=== PATIENT | male | born 1975 | race Hispanic/Latino ===

== ENCOUNTER 2017-12-03 22:58 | Emergency (ER) | payer SELFPAY ==
[2017-12-04 01:06] LABS: Protime INR 1.04
[2017-12-04 01:11] LABS: Barbiturates NEGATIVE; Benzodiazepines NEGATIVE; Cocaine NEGATIVE; METHAMPHETAM NEGATIVE (NEGATIVE); Opiates NEGATIVE; Phencyclidine NEGATIVE; THC Cannibis NEGATIVE
[2017-12-04 01:11] LABS: Absolute Monocytes 0.7 K/uL (0.1-1.3); Absolute Neutrophil 6.2 K/uL (1.8-8.0); Basophils % 1.9 % (0-1.3); Eosinophils % 5.2 % (0-4.4); Lymphocytes % 11.9 % (15.3-44.8); MCH 29.6 pg (27.0-35.0); MCV 86.4 fL (80-100); MPV 9.2 fL (7.6-11.3); Monocytes % 7.9 % (3.3-12.3); RBC Red Blood Cell Count 5.09 M/uL (4.33-5.43)
[2017-12-04 01:15] LABS: Bicarbonate 27 mEq/L (21-31); Glucose Level 294 mg/dL (65-120); Potassium 4.1 mEq/L (3.6-5.0); Sodium Level 135 mEq/L (135-145)
--- NOTE | 2017-12-04 01:20 | EDPHYS ---
Physician Documentation [facility] Name: Hal Dennis Age: 42 yrs Sex: Male : 1975 Arrival Date: 12/03/2017 Time: 22:59 Bed 23 Private MD: ED Physician Kvng Shearer HPI: 12/04 01:11 This 42 yrs old Male presents to ER via Ambulatory with complaints of Leg jad Pain, Numbness Of Hand, Numbness of leg. 01:11 The patient presents with decreased range of motion, pain. The complaints affect the jad lateral aspect of left thigh, left hamstring and left calf. Context: The problem was sustained at an unknown site. Onset: The symptoms/episode began/occurred 5 day(s) ago. Modifying factors: The symptoms are alleviated by elevating leg, the symptoms are aggravated by movement. Associated signs and symptoms: The patient has no apparent associated signs or symptoms. Severity of symptoms: At their worst the symptoms were moderate, in the emergency department the symptoms are unchanged. Historical: - Allergies: 12/03 23:25 NKDA; bb - Home Meds: 23:25 lisinopril Oral [Active]; metformin 500 mg Oral Tb24 1 tab once daily [Active]; bb metoprolol 100 mg twice a day for High Blood Pressure [Active]; Hydralazine Oral [Active]; - PMHx: 23:25 Diabetes - NIDDM; Hypertension; bb - PSHx: 23:25 None; bb - Immunization history:: Adult Immunizations unknown. - Social history:: Smoking status: Patient/guardian denies using tobacco, Patient/guardian denies using alcohol, street drugs. - Ebola Screening: : No symptoms or risks identified at this time. - Family history:: not pertinent. ROS: 12/04 01:11 Constitutional: Negative for fever, chills, and weight loss, Eyes: Negative for injury, jad pain, redness, and discharge, ENT: Negative for injury, pain, and discharge, Neck: Negative for injury, pain, and swelling, Cardiovascular: Negative for chest pain, palpitations, and edema, Respiratory: Negative for shortness of breath, cough, wheezing, and pleuritic chest pain, Abdomen/GI: Negative for abdominal pain, nausea, vomiting, diarrhea, and constipation, Back: Negative for injury and pain, : Negative for injury, bleeding, discharge, and swelling, Skin: Negative for injury, rash, and discoloration, Psych: Negative for depression, anxiety, suicide ideation, homicidal ideation, and hallucinations, Allergy/Immunology: Negative for hives, rash, and allergies, Endocrine: Negative for neck swelling, polydipsia, polyuria, polyphagia, and marked weight changes, Hematologic/Lymphatic: Negative for swollen nodes, abnormal bleeding, and unusual bruising. MS/extremity: Positive for paresthesias, tingling, of the dorsal aspect of distal phalanx of left thumb, dorsal aspect of proximal phalanx of left thumb, dorsal aspect of distal phalanx of left index finger, dorsal aspect of middle phalanx of left index finger, dorsal aspect of proximal phalanx of left index finger, dorsal aspect of distal phalanx of left middle finger, dorsal aspect of middle phalanx of left middle finger, dorsal aspect of proximal phalanx of left middle finger, dorsal aspect of distal phalanx of left ring finger, dorsal aspect of middle phalanx of left ring finger and dorsal aspect of proximal phalanx of left ring finger. Exam: :11 Constitutional: This is a well developed, well nourished patient who is awake, alert, jad and in no acute distress. Head/Face: Normocephalic, atraumatic. Eyes: Pupils equal round and reactive to light, extra-ocular motions intact. Lids and lashes normal. Conjunctiva and sclera are non-icteric and not injected. Cornea within normal limits. Periorbital areas with no swelling, redness, or edema. ENT: Nares patent. No nasal discharge, no septal abnormalities noted. Tympanic membranes are normal and external auditory canals are clear. Oropharynx with no redness, swelling, or masses, exudates, or evidence of obstruction, uvula midline. Mucous membranes moist. Neck: Trachea midline, no thyromegaly or masses palpated, and no cervical lymphadenopathy. Supple, full range of motion without nuchal rigidity, or vertebral point tenderness. No Meningismus. Chest/axilla: Normal chest wall appearance and motion. Nontender with no deformity. No lesions are appreciated. Cardiovascular: Regular rate and rhythm with a normal S1 and S2. No gallops, murmurs, or rubs. Normal PMI, no JVD. No pulse deficits. Respiratory: Lungs have equal breath sounds bilaterally, clear to auscultation and percussion. No rales, rhonchi or wheezes noted. No increased work of breathing, no retractions or nasal flaring. Abdomen/GI: Soft, non-tender, with normal bowel sounds. No distension or tympany. No guarding or rebound. No evidence of tenderness throughout. Back: No spinal tenderness. No costovertebral tenderness. Full range of motion. Skin: Warm, dry with normal turgor. Normal color with no rashes, no lesions, and no evidence of cellulitis. Psych: Awake, alert, with orientation to person, place and time. Behavior, mood, and affect are within normal limits. 01:11 Musculoskeletal/extremity: Circulation is intact in all extremities. Pulses: the dorsal aspect of distal phalanx of left thumb, dorsal aspect of proximal phalanx of left thumb, dorsal aspect of distal phalanx of left index finger, dorsal aspect of middle phalanx of left index finger, dorsal aspect of proximal phalanx of left index finger, dorsal aspect of distal phalanx of left middle finger, dorsal aspect of middle phalanx of left middle finger, dorsal aspect of proximal phalanx of left middle finger, dorsal aspect of middle phalanx of left ring finger, dorsal aspect of proximal phalanx of left ring finger and left ring fingernail Tingling of extremity. numbness. 01:16 Back: pain, that is moderate, ROM is normal, normal spinal alignment noted, CVA jad tenderness, is absent, vertebral tenderness, is not appreciated, muscle spasm. Vital Signs: 12/03 23:25 BP 236 / 110; Pulse 71; Resp 20; Temp 99.7(O); Pulse Ox 96% on R/A; Weight 170.1 kg bb (R); Height 5 ft. 2 in. (157.48 cm) (R); Pain 10/10; 12/04 00:00 BP 199 / 105; Pulse 61; Resp 18; Pulse Ox 96% on R/A; lp1 00:30 BP 184 / 105; Pulse 62; Resp 18; Pulse Ox 97% on R/A; lp1 01:09 BP 214 / 107; Pulse 59; Resp 22; Pulse Ox 94% on R/A; jb5 01:20 BP 180 / 107; Pulse 65; Resp 18; Pulse Ox 96% on R/A; lp1 02:00 BP 169 / 99; Pulse 63; Resp 14; Pulse Ox 96% on R/A; lp1 02:30 BP 156 / 77; Pulse 65; Resp 16; Pulse Ox 97% on R/A; lp1 03:00 BP 164 / 82; Pulse 66; Resp 16; Pulse Ox 95% on R/A; lp1 12/03 23:25 Body Mass Index 68.59 (170.10 kg, 157.48 cm) bb MDM: 12/03 23:52 Patient medically screened. [facility] 12/04 01:16 Data reviewed: vital signs, nurses notes, lab test result(s), EKG, radiologic studies, jad plain films. 12/04 00:28 Order name: Basic Metabolic Panel; Complete Time: 02:16 [facility] 12/04 00:28 Order name: BNP; Complete Time: 02:16 [facility] 12/04 00:28 Order name: CBC with Diff; Complete Time: 02:16 [facility] 12/04 00:28 Order name: Ckmb; Complete Time: 02:16 [facility] 12/04 00:28 Order name: CPK; Complete Time: 02:16 [facility] 12/04 00:28 Order name: LFT's; Complete Time: 02:16 [facility] 12/04 00:28 Order name: Magnesium; Complete Time: 02:16 [facility] 12/04 00:28 Order name: PT-INR; Complete Time: 01:11 [facility] 12/04 00:28 Order name: Ptt, Activated; Complete Time: 01:11 [facility] 12/04 00:28 Order name: Troponin (emerg Dept Use Only); Complete Time: 02:16 [facility] 12/04 00:28 Order name: Acetaminophen; Complete Time: 02:16 [facility] 12/04 00:28 Order name: ETOH Level; Complete Time: 02:16 [facility] 12/04 00:28 Order name: Salicylate; Complete Time: 02:16 [facility] 12/04 00:28 Order name: Urine Drug Screen; Complete Time: 02:16 [facility] 12/04 00:28 Order name: XRAY Chest (1 view) [facility] 12/04 00:28 Order name: EKG; Complete Time: 00:28 [facility] 12/04 00:28 Order name: Cardiac monitoring; Complete Time: 01:05 [facility] 12/04 00:28 Order name: EKG - Nurse/Tech; Complete Time: 01:05 [facility] 12/04 00:28 Order name: IV Saline Lock; Complete Time: 01:05 jad 12/04 00:28 Order name: Labs collected and sent; Complete Time: : jad 12/04 00:28 Order name: O2 Per Protocol; Complete Time: 01:21 jad 12/04 00:28 Order name: O2 Sat Monitoring; Complete Time: 01:21 jad 12/04 00:28 Order name: Urine Culture [facility] 12/04 01:11 Order name: Urine Dipstick--Ancillary (enter results); Complete Time: 02:16 cc 12/04 00:28 Order name: Urine Dipstick-Ancillary (obtain specimen); Complete Time: :38 jad 12/04 01:19 Order name: Vital Signs; Complete Time: 38 [facility] Administered Medications: 01:37 Drug: NS 0.9% 1000 ml Route: IV; Rate: 1 bolus; Site: right antecubital; lp1 03:11 Follow up: IV Status: Completed infusion; IV Intake: 1000ml lp1 01:37 Drug: hydrALAZINE 10 mg Route: IV; Rate: per protocol; Site: right antecubital; lp1 02:28 Follow up: Response: Blood pressure is lowered; IV Status: Completed infusion lp1 01:37 Drug: fentaNYL (PF) 25 mcg Route: IVP; Site: right antecubital; lp1 02:27 Follow up: Response: Pain is decreased lp1 01:38 Drug: Zofran 4 mg Route: IVP; Site: right antecubital; lp1 02:30 Follow up: Response: No adverse reaction lp1 02:27 Drug: Magnesium Sulfate 1 grams Route: IVPB; Infused Over: 1 hrs; Site: right lp1 antecubital; 03:28 Follow up: IV Status: Completed infusion lp1 03:28 Not Given (Hemodynamic Parameters): fentaNYL (PF) 25 mcg IVP once lp1 Disposition: 12/04/17 01:19 Discharged to Home. Impression: Carpal tunnel syndrome, Essential (primary) hypertension, Sciatica, left side, Obesity, unspecified, Type 2 diabetes mellitus, Hypomagnesemia. - Condition is Stable. - Discharge Instructions: Carpal Tunnel Syndrome, Type 2 Diabetes Mellitus, Adult, Hypertension, Hypomagnesemia, Obesity, Sciatica, Hypertension, Wfcq-[id number], How to Take Your Blood Pressure, Sdez-is-Lffz, Type 2 Diabetes Mellitus, Adult, Yonb-ax-Vfrn, Carpal Tunnel Syndrome, Owsb-cd-Cobc, Managing Your High Blood Pressure, Obesity, Oxkp-yv-Kral. - Prescriptions for Tylenol- Codeine #3 300-30 mg Oral Tablet - take 2 tablet by ORAL route every 6 hours As needed; 30 tablet. - Medication Reconciliation Form, Thank You Letter, Antibiotic Education, Prescription Opioid Use, Work release form form. - Follow up: Private Physician; When: 2 - 3 days; Reason: Recheck today's complaints, Continuance of care, Re-evaluation by your physician. - Problem is new. - Symptoms have improved. Signatures: Dispatcher [employer] EDMS Kvng Shearer MD MD cha Ballard, Brenda, RN RN bb Madai Michelle RN RN lp1 Corrections: (The following items were deleted from the chart) : 01:19 12/04/2017 01:19 Discharged to Home. Impression: Carpal tunnel syndrome; jad Essential (primary) hypertension; Sciatica, left side; Obesity, unspecified. Condition is Stable. Forms are Medication Reconciliation Form, Thank You Letter, Antibiotic Education, Prescription Opioid Use. Follow up: Private Physician; When: 2 - 3 days; Reason: Recheck today's complaints, Continuance of care, Re-evaluation by your physician. Problem is new. Symptoms have improved. jad 02:18 01:20 12/04/2017 01:19 Discharged to Home. Impression: Carpal tunnel syndrome; jad Essential (primary) hypertension; Sciatica, left side; Obesity, unspecified; Type 2 diabetes mellitus. Condition is Stable. Forms are Medication Reconciliation Form, Thank You Letter, Antibiotic Education, Prescription Opioid Use. Follow up: Private Physician; When: 2 - 3 days; Reason: Recheck today's complaints, Continuance of care, Re-evaluation by your physician. Problem is new. Symptoms have improved. jad 03:34 02:18 12/04/2017 01:19 Discharged to Home. Impression: Carpal tunnel syndrome; lp1 Essential (primary) hypertension; Sciatica, left side; Obesity, unspecified; Type 2 diabetes mellitus; Hypomagnesemia. Condition is Stable. Discharge Instructions: Carpal Tunnel Syndrome, Type 2 Diabetes Mellitus, Adult, Hypertension, Obesity, Sciatica, Hypertension, Cnjc-wz-Kjrm, How to Take Your Blood Pressure, Givs-nv-Zhja, Type 2 Diabetes Mellitus, Adult, Zydy-ch-Vllq, Carpal Tunnel Syndrome, Xqne-as-Owug, Managing Your High Blood Pressure, Obesity, Ximy-bg-Iucu. Prescriptions for Tylenol-Codeine #3 300-30 mg Oral Tablet - take 2 tablet by ORAL route every 6 hours As needed; 30 tablet. and Forms are Medication Reconciliation Form, Thank You Letter, Antibiotic Education, Prescription Opioid Use. Follow up: Private Physician; When: 2 - 3 days; Reason: Recheck today's complaints, Continuance of care, Re-evaluation by your physician. Problem is new. Symptoms have improved. jad
--- NOTE | 2017-12-04 01:20 | ER ---
Nurse's Notes [facility] Name: Hal Dennis Age: 42 yrs Sex: Male : 1975 Arrival Date: 12/03/2017 Time: 22:59 Bed 23 Private MD: Diagnosis: Carpal tunnel syndrome;Essential (primary) hypertension;Sciatica, left side;Obesity, unspecified;Type 2 diabetes mellitus;Hypomagnesemia Presentation: 12/03 23:20 Method Of Arrival: Ambulatory lp1 23:23 Presenting complaint: Patient states: he is having left lower back pain radiating down bb his left leg with numbness to his left foot and left hand x 5 days. Transition of care: patient was not received from another setting of care. Onset of symptoms was November 27, 2017. Risk Assessment: Do you want to hurt yourself or someone else? Patient reports no desire to harm self or others. Initial Sepsis Screen: Does the patient meet any 2 criteria? No. Patient's initial sepsis screen is negative. Does the patient have a suspected source of infection? No. Patient's initial sepsis screen is negative. Care prior to arrival: None. 23:26 Acuity: CRISTELA 2 bb Historical: - Allergies: 23:25 NKDA; bb - Home Meds: 23:25 lisinopril Oral [Active]; metformin 500 mg Oral Tb24 1 tab once daily [Active]; bb metoprolol 100 mg twice a day for High Blood Pressure [Active]; Hydralazine Oral [Active]; - PMHx: 23:25 Diabetes - NIDDM; Hypertension; bb - PSHx: 23:25 None; bb - Immunization history:: Adult Immunizations unknown. - Social history:: Smoking status: Patient/guardian denies using tobacco, Patient/guardian denies using alcohol, street drugs. - Ebola Screening: : No symptoms or risks identified at this time. - Family history:: not pertinent. Screenin:46 Abuse screen: Denies threats or abuse. Denies injuries from another. Nutritional lp1 screening: No deficits noted. Tuberculosis screening: No symptoms or risk factors identified. Fall Risk None identified. Assessment: 23:44 General: Appears in no apparent distress. Behavior is calm, cooperative, appropriate lp1 for age. Pain: Complains of pain in left low back Pain radiates to left leg Quality of pain is described as sharp, Pain began 2-3 days ago. Neuro: Level of Consciousness is awake, alert, obeys commands, Gait is steady, Reports numbness in left hand and left foot. Cardiovascular: Patient's skin is warm and dry. Respiratory: Respiratory effort is even, Breath sounds are clear bilaterally. GI: Abdomen is obese. : No signs and/or symptoms were reported regarding the genitourinary system. EENT: No signs and/or symptoms were reported regarding the EENT system. Derm: Skin is pink, warm \T\ dry. Musculoskeletal: Circulation, motion, and sensation intact. 12/04 00:45 Reassessment: Patient appears in no apparent distress at this time. No changes from lp1 previously documented assessment. Patient and/or family updated on plan of care and expected duration. Pain level reassessed. 01:40 Reassessment: Patient and/or family updated on plan of care and expected duration. Pain lp1 level reassessed. Pain to left lower back. 03:00 Reassessment: Patient appears in no apparent distress at this time. Patient and/or lp1 family updated on plan of care and expected duration. Pain level reassessed. Patient resting, eyes closed, respirations unlabored. Vital Signs: 12/03 23:25 BP 236 / 110; Pulse 71; Resp 20; Temp 99.7(O); Pulse Ox 96% on R/A; Weight 170.1 kg bb (R); Height 5 ft. 2 in. (157.48 cm) (R); Pain 10/10; 12/04 00:00 BP 199 / 105; Pulse 61; Resp 18; Pulse Ox 96% on R/A; lp1 00:30 BP 184 / 105; Pulse 62; Resp 18; Pulse Ox 97% on R/A; lp1 01:09 BP 214 / 107; Pulse 59; Resp 22; Pulse Ox 94% on R/A; jb5 01:20 BP 180 / 107; Pulse 65; Resp 18; Pulse Ox 96% on R/A; lp1 02:00 BP 169 / 99; Pulse 63; Resp 14; Pulse Ox 96% on R/A; lp1 02:30 BP 156 / 77; Pulse 65; Resp 16; Pulse Ox 97% on R/A; lp1 03:00 BP 164 / 82; Pulse 66; Resp 16; Pulse Ox 95% on R/A; lp1 12/03 23:25 Body Mass Index 68.59 (170.10 kg, 157.48 cm) bb ED Course: 12/03 22:59 Patient arrived in ED. es 23:20 Madai Michelle, RN is Primary Nurse. lp1 23:24 Triage completed. bb 23:25 Arm band placed on Patient placed in an exam room, on a stretcher, on pulse oximetry. bb 23:46 Patient has correct armband on for positive identification. Pulse ox on. NIBP on. lp1 23:52 Kvng Shearer MD is Attending Physician. [facility] 12/04 00:44 X-ray completed. Portable x-ray completed in exam room. Patient tolerated procedure jw2 well. 00:45 XRAY Chest (1 view) In Process Unspecified. EDMS 01:02 Inserted saline lock: 20 gauge in right antecubital area, using aseptic technique. jb5 Blood collected. 01:04 Urine Culture Sent. jb5 01:04 Urine Drug Screen Sent. jb5 01:04 Basic Metabolic Panel Sent. jb5 01:04 BNP Sent. jb5 01:04 CBC with Diff Sent. jb5 01:04 Ckmb Sent. jb5 01:04 CPK Sent. jb5 01:04 LFT's Sent. jb5 01:04 Magnesium Sent. jb5 01:04 PT-INR Sent. jb5 01:04 Ptt, Activated Sent. jb5 01:05 Troponin (emerg Dept Use Only) Sent. jb5 02:29 No provider procedures requiring assistance completed. lp1 03:34 IV discontinued, No redness/swelling at site. Pressure dressing applied. lp1 Administered Medications: 01:37 Drug: NS 0.9% 1000 ml Route: IV; Rate: 1 bolus; Site: right antecubital; lp1 03:11 Follow up: IV Status: Completed infusion; IV Intake: 1000ml lp1 01:37 Drug: hydrALAZINE 10 mg Route: IV; Rate: per protocol; Site: right antecubital; lp1 02:28 Follow up: Response: Blood pressure is lowered; IV Status: Completed infusion lp1 01:37 Drug: fentaNYL (PF) 25 mcg Route: IVP; Site: right antecubital; lp1 02:27 Follow up: Response: Pain is decreased lp1 01:38 Drug: Zofran 4 mg Route: IVP; Site: right antecubital; lp1 02:30 Follow up: Response: No adverse reaction lp1 02:27 Drug: Magnesium Sulfate 1 grams Route: IVPB; Infused Over: 1 hrs; Site: right lp1 antecubital; 03:28 Follow up: IV Status: Completed infusion lp1 03:28 Not Given (Hemodynamic Parameters): fentaNYL (PF) 25 mcg IVP once lp1 Intake: 03:11 IV: 1000ml; Total: 1000ml. lp1 Outcome: 01:19 Discharge ordered by MD. street 03:34 Discharged to home ambulatory, with friend. lp1 03:34 Condition: good 03:34 Discharge instructions given to patient, Instructed on discharge instructions, follow up and referral plans. medication usage, Demonstrated understanding of instructions, follow-up care, medications, Prescriptions given X 1. 03:34 Patient left the ED. lp1 Addendum: 12/08/2017 17:19 Addendum: Culture Results: Positive urine culture. No further action required. Other: s s Pt has no urinary complaints. Ok per VENUS Pineda. Signatures: Dispatcher [employer] EDKvng Martel MD MD cha Salyer, Edna es Ballard, Brenda, RN RN bb Smirch, Shelby, RN RN ss Pena, Laura, RN RN lp1 Karla Alicea2 Shanell Cohen5 Corrections: (The following items were deleted from the chart) 12/03 23:26 23:23 Acuity: CRISTELA 3 bb jaydon
[2017-12-04 01:21] LABS: ALT/SGPT 26 IU/L (10-60); AST/SGOT 26 IU/L (10-42); Albumin 3.6 g/dL (3.2-5.5); Alkaline Phosphatase 70 IU/L (42-121); BUN Blood Urea Nitrogen 18 mg/dL (6-20); Bilirubin Direct 0.1 mg/dL (0-0.2); Bilirubin Total 0.6 mg/dL (0.3-1.2); Creatine Phosphokinase 78 IU/L (22-269); Magnesium 1.7 mg/dL (1.8-2.5); Protein, Total 6.9 g/dL (6.0-8.3)
[2017-12-04 01:24] LABS: CKMB Creatine Kinase MB 1.8 ng/ml (0.3-4.0)
[2017-12-04] MEDS ORDERED: HYDRALAZINE HCL 20 MG/ML VIAL ONE (01:28)
[2017-12-04] MEDS ORDERED: FENTANYL CITR 100 MCG/2 ML ONE (01:28)
[2017-12-04] MEDS ORDERED: NA CHLORIDE 0.9% 1,000 ML ONE (01:29)
[2017-12-04] MEDS ORDERED: ONDANSETRON 4 MG/2 ML VIAL ONE (01:31)
[2017-12-04 01:44] LABS: Alcohol Serum/Plasma < 10 mg/dl
[2017-12-04 01:46] LABS: Urine Blood NEGATIVE (NEG); Urine Glucose 3+ (NEG); Urine Protein 3+ (NEG); Urine Specific Gravity >1.030 (1.005-1.030); Urine pH 5.5 (5.0-7.0)
[2017-12-04] MEDS ORDERED: MAGNESIUM SULFATE 1 gm IVPB 1 GM/100 ML BAG IV ONE (02:21)
[2017-12-04 03:39] VITALS: TEMP 99.7
[2017-12-04 03:46] VITALS: BP 164/82; O2SAT 95
--- NOTE | 2017-12-04 06:46 | EKG ---
Test Date: 2017-12-04 Test Time: 00:58:12 Telephone Operators Supervisor: STEFANIE MEASUREMENT RESULTS: Intervals: Rate: 58 WI: 184 QRSD: 112 QT: 440 QTc: 431 [place]: P: 30 WI: 184 QRS: -45 T: 39 INTERPRETIVE STATEMENTS: Sinus bradycardia Left axis deviation Moderate voltage criteria for LVH, may be normal variant Abnormal ECG Compared to ECG 10/15/2016 21:32:35 Left ventricular hypertrophy now present Sinus rhythm no longer present Electronically Signed On 12-04-17 06:45:59 CDT by Trey Miramontes
--- NOTE | 2017-12-04 10:33 | RAD REPORT ---
EXAM DESCRIPTION: RAD - Chest Single View - 12/04/2017 12:45 am CLINICAL HISTORY: Cough COMPARISON: October 2016 TECHNIQUE: AP portable chest image was obtained 0041 hour . FINDINGS: Lung volumes are low. Exam is limited due to large body habitus, shallow inspiration and p ortable technique. No acute lung parenchymal process suspected. Heart and vasculature are normal. No measurable pleural effusion and no pneumothorax. No gross bony abnormality seen. No acute aortic find ings suspected. IMPRESSION: Exam has significant limitation but is without acute finding. No significant change from prior imaging.
== END 2017-12-04 03:34 | disposition home or self-care (01) ==
LOC: ER 22:58
DX: G56.00 Carpal tunnel syndrome, unspecified upper limb (principal); M54.32 Sciatica, left side; I10 Essential (primary) hypertension; E83.42 Hypomagnesemia; E11.9 Type 2 diabetes mellitus without complications; E66.9 Obesity, unspecified
CPT/HCPCS: 36415; 71045; 80048; 80076; 80307; 80320; 80329; 81003; 82550; 82553; 83735; 83880; 84484; 85025; 85610; 85730; 87077; 87086; 87088; 87186; 93005; 96365; 96375; 99284; J0360; J2405; J3010; J3475; J7030